=== PATIENT | female | born 2000 | race African-American/Black ===

== ENCOUNTER 2022-01-13 21:05 | Inpatient (IN) ==
[2022-01-13] MEDS ORDERED: LACTATED RINGERS 250 ML IV ONE (22:57)
[2022-01-13] MEDS ORDERED: METHYLERGONOVINE 0.2 MG/1 ML AMP IM PRN (22:57)
[2022-01-13] MEDS ORDERED: OXYTOCIN/LR 20 UNIT/1,000 ML BAG IV ONE (22:57)
[2022-01-13] MEDS ORDERED: miSOPROStoL 200 MCG TABLET RECTAL PRN (22:57)
[2022-01-13] MEDS ORDERED: CARBOPROST TROMETHAMINE 250 MCG/ML AMP IM PRN (22:57)
[2022-01-13] MEDS ORDERED: BUTORPHANOL 2 MG/ML VIAL IV PRN (22:57)
[2022-01-13] MEDS ORDERED: MEPERIDINE 50 MG/1 ML VIAL IV PRN (22:57)
[2022-01-13] MEDS ORDERED: LACTATED RINGERS 500 ML IV PRN (22:57)
[2022-01-13] MEDS ORDERED: TRANEXAMIC ACID 1,000 MG in SODIUM CHLORIDE 0.9% 100 ML IV PRN (22:57)
[2022-01-13] MEDS ORDERED: ONDANSETRON 4 MG/2 ML VIAL IV PRN (22:57)
[2022-01-13 23:27] LABS: Basophils % 0.2 % (0.0-0.8); Eosinophils % 0.6 % (0.00-10.9); Hematocrit 51.1 VOL% (35.7-47.0); Hemoglobin 16.8 GM/DL (12.0-16.0); Immature Granulocytes % 0.8 %; Immature Granulocytes Absolute 0.04 #; Lymphocytes # 1.1 10*3/uL (1.4-4.0); Mean Corpuscular HGB Conc 32.9 GM/DL (32-36); Mean Corpuscular Volume 85.9 FL (87-102); Mean Platelet Volume 9.6 FL (9.6-12.0); Monocytes # 0.5 10*3/uL (0.11-0.8); Monocytes % 10.2 % (1.7-12.7); Neutrophils % 65.2 % (38.7-73.9); Platelet Count 120 T/CUMM (130-400); Red Blood Count 5.95 MC/CUMM (3.8-5.5); Red Cell Distribution Width 13.6 % (9.3-17.3); White Blood Count 4.9 T/CUMM (4-12)
[2022-01-14] MEDS: LACTATED RINGERS 1,000 ML IV SCH ×2 (00:36→09:38)
[2022-01-14] MEDS ORDERED: hydrOXYzine HCL 25 MG/1 ML VIAL IM PRN (07:13)
[2022-01-14] MEDS ORDERED: ONDANSETRON 4 MG/2 ML VIAL IV ONE (07:13)
[2022-01-14] MEDS ORDERED: diphenhydrAMINE 50 MG/1 ML VIAL IV PRN ×2 (07:13)
[2022-01-14] MEDS ORDERED: FAMOTIDINE 20 MG/2 ML VIAL IV ONE (07:13)
[2022-01-14] MEDS ORDERED: CITRIC ACID/SODIUM CITRATE 30 ML UDCUP PO ONE (07:13)
[2022-01-14] MEDS ORDERED: ePHEDrine 50 MG/ML VIAL IV PRN (07:13)
[2022-01-14] MEDS ORDERED: PROMETHAZINE 25 MG/1 ML VIAL IM ONE (07:13)
[2022-01-14] MEDS ORDERED: NALOXONE 0.4 MG/ML VIAL IV PRN (07:13)
[2022-01-14] MEDS ORDERED: fentaNYL 2 MCG/ROPIV 0.2% EPID 100 ML EPIDURAL SCH (07:30)
[2022-01-14] MEDS ORDERED: OXYTOCIN/LR 20 UNIT/1,000 ML BAG IV SCH (09:30)
[2022-01-14 11:01] LABS: Bilirubin,Urine Negative (Negative); Blood, Urine Trace mg/dL (Negative); Glucose,Urine (UA) Negative (Negative); Ketones,Urine Negative (Negative); Nitrite,Urine Negative (Negative); Protein,Urine Negative (Negative); Urine Appearance Clear (Clear); Urine Color Yellow (Yellow); Urine Urobilinogen 0.2 eU/dL (<2.0)
[2022-01-14 11:11] LABS: Mucus,Urine Few /LPF (Occasional); Squamous Epithelial Cell,Urine Occasional /HPF (0-10)
[2022-01-14] MEDS ORDERED: SODIUM CHLORIDE 0.9% 0 ML IV ONE (11:30)
[2022-01-14] MEDS ORDERED: miSOPROStoL 200 MCG TABLET ONE (11:30)
[2022-01-14] MEDS ORDERED: METHYLERGONOVINE 0.2 MG/1 ML AMP ONE (11:30)
[2022-01-14] MEDS ORDERED: TRANEXAMIC ACID 1,000 MG/10 ML VIAL ONE (11:30)
[2022-01-14] MEDS ORDERED: CARBOPROST TROMETHAMINE 250 MCG/ML AMP IM ONE (11:31)
[2022-01-14 12:34] LABS: Cord Arterial Blood HCO3 18.4 MMOL/L
[2022-01-14 12:38] LABS: Cord Venous Blood HCO3 20.5 MMOL/L; Cord Venous Blood PCO2 48.6 MMHG; Cord Venous Blood PO2 28.1
[2022-01-14] MEDS ORDERED: OXYTOCIN/LR 20 UNIT/1,000 ML BAG IV ONE (15:03)
[2022-01-14] MEDS ORDERED: ACETAMINOPHEN 325 MG TABLET PO PRN (15:03)
[2022-01-14] MEDS ORDERED: oxyCODONE/ACETAMINOPHEN 5-325 MG TABLET PO PRN (15:03)
[2022-01-14] MEDS ORDERED: DIPH/TET/ACEL PERT BOOSTER VACCINE 0.5 ML VIAL IM ONE (15:03)
[2022-01-14] MEDS ORDERED: HYDROCORTISONE 2.5% RECTAL CREAM 30 GM TUBE TOP PRN (15:03)
[2022-01-14] MEDS ORDERED: LANOLIN 50% CREAM 0.3 OZ TUBE TOP PRN (15:03)
[2022-01-14] MEDS ORDERED: MEASLES/MUMPS/RUBELLA VACCINE 0.5 ML VIAL SUBCUT ONE (15:03)
[2022-01-14] MEDS ORDERED: ONDANSETRON 4 MG/2 ML VIAL IV PRN (15:03)
[2022-01-14] MEDS ORDERED: WITCH HAZEL PADS 100/JAR TOP PRN (15:03)
[2022-01-14] MEDS ORDERED: RHO(D) IMMUNE GLOBULIN 300 MCG SYRINGE IM ONE (15:03)
[2022-01-14] MEDS ORDERED: BENZOCAINE 20%/MENTHOL 0.5% SPRAY 56 GM CAN TOP PRN (15:03)
[2022-01-14] MEDS ORDERED: BISACODYL 10 MG SUPP RECTAL PRN (15:03)
[2022-01-14] MEDS: DOCUSATE SODIUM 100 MG CAPSULE PO SCH (20:37)
[2022-01-14] MEDS: IBUPROFEN 800 MG TABLET PO PRN (20:37)
[2022-01-14] MEDS: oxyCODONE/ACETAMINOPHEN 5-325 MG TABLET PO PRN (20:39)
[2022-01-15 04:26] LABS: Basophils % 0.2 % (0.0-0.8); Eosinophils % 0.2 % (0.00-10.9); Hematocrit 35.1 VOL% (35.7-47.0); Hemoglobin 11.5 GM/DL (12.0-16.0); Immature Granulocytes % 0.6 %; Immature Granulocytes Absolute 0.08 #; Lymphocytes # 2.4 10*3/uL (1.4-4.0); Lymphocytes % 18.8 % (21.3-54.2); Mean Corpuscular HGB Conc 32.8 GM/DL (32-36); Mean Corpuscular Volume 87.3 FL (87-102); Mean Platelet Volume 10.3 FL (9.6-12.0); Monocytes # 1.4 10*3/uL (0.11-0.8); Monocytes % 10.8 % (1.7-12.7); Neutrophils % 69.4 % (38.7-73.9); Platelet Count 197 T/CUMM (130-400); Red Blood Count 4.02 MC/CUMM (3.8-5.5); Red Cell Distribution Width 13.6 % (9.3-17.3); White Blood Count 12.6 T/CUMM (4-12)
[2022-01-15] MEDS: DOCUSATE SODIUM 100 MG CAPSULE PO SCH ×3 (10:19→20:44)
[2022-01-15] MEDS: IBUPROFEN 800 MG TABLET PO PRN (10:24)
[2022-01-15] MEDS: oxyCODONE/ACETAMINOPHEN 5-325 MG TABLET PO PRN (19:33)
[2022-01-16] MEDS: oxyCODONE/ACETAMINOPHEN 5-325 MG TABLET PO PRN ×2 (01:14→07:57)
[2022-01-16 07:30] VITALS: BP 106/67
[2022-01-16] MEDS: DOCUSATE SODIUM 100 MG CAPSULE PO SCH (07:55)
[2022-01-16] MEDS: IBUPROFEN 800 MG TABLET PO PRN (07:56)
== END 2022-01-16 12:00 | disposition home or self-care (01) | DRG 560 ==
LOC: N.LD 21:05 → N.OB 01-14 14:55
PROVIDERS: ADMIT Specialist; ATTEND Specialist